=== PATIENT | female | born 1940 | race Caucasian/White ===

== ENCOUNTER → 2018-12-20 09:19 | Outpatient (CLI) | payer MEDICARE, BC, SELFPAY ==
--- NOTE | 2018-12-20 14:33 | DI.MRI.S_ITS ---
PROCEDURE: MR KNEE LT WO CON INDICATIONS: PAIN IN LEFT KNEE TECHNIQUE: Noncontrast sagittal PD fast spin echo and T2 fast spin echo with fat saturation, sagittal 3-D FLASH with fat saturation; coronal T1 spin echo and PD fast spin echo with fat saturation, and axial PD fast spin echo with fat saturation through the knee. COMPARISON: None. FINDINGS: Image quality: Excellent. Menisci: The body of the medial meniscus is truncated, likely secondary to chronic tear. There is degenerative tear of the anterior and posterior horns of the medial meniscus. There is horizontal tear involving the body of the lateral meniscus. The meniscal root ligaments appear intact. Cruciate ligaments: The anterior cruciate ligament appears thickened and demonstrates heterogeneous signal, probably secondary to chronic partial tear and associated scarring. The posterior cruciate ligament appears intact. Medial structures: The medial collateral ligament appears intact. The posterior oblique ligament, semimembranosus tendon insertions, oblique popliteal ligament, and meniscocapsular junction appear intact. Visualized portions of the pes anserinus tendons appear normal. No abnormal bursal fluid. Lateral structures: The lateral collateral ligament, long and short heads of the biceps femoris tendon appear intact. The popliteus tendon appears normal; the popliteofibular ligament appears intact. The posterosuperior and anteroinferior popliteomeniscal fascicles appear intact. The arcuate and fabellofibular ligaments appear intact, on either side of the lateral inferior geniculate artery. Iliotibial band appears normal. Anterior structures: The quadriceps and patellar tendons appear intact. Patellar alignment is normal. No femoral trochlear dysplasia or ventral trochlear prominence. No edema in the infrapatellar fat pad. Bones and cartilage: No bone marrow contusions or fractures. Severe cartilage loss involving the medial femorotibial compartment and patellofemoral compartment. There is a 9 mm cartilage fissure in the weightbearing portion of the lateral femoral condyle. There is marrow edema in the weightbearing portion of the medial tibial plateau. A subchondral cyst is noted in the inferior aspect of patella. Joint space: There is moderate knee joint effusion. No Nugent's cyst. Normal appearing synovial plicae are incidentally noted. IMPRESSION: 1. Extensive tear degenerative tear of the medial meniscus. 2. Horizontal tear involving the body of the lateral meniscus. 3. The anterior cruciate ligament appears thickened with heterogeneous signal likely related to old injury/scarring. 3. Tricompartmental cartilage loss and degeneration most pronounced in the medial femorotibial compartment and the patellar femoral compartment. 4. Moderate knee joint effusion. Dictated by: Esha Cai M.D. on 12/20/2018 at 9:58 Approved by: Esah Cai M.D. on 12/20/2018 at 17:59
== END ==
PROVIDERS: PCP Family Medicine; Visit Provider Orthopaedic Surgery
DX: M25.562 Pain in left knee (principal); M23.212 Derangement of anterior horn of medial meniscus due to old tear or injury, left knee; M23.222 Derangement of posterior horn of medial meniscus due to old tear or injury, left knee; M23.201 Derangement of unspecified lateral meniscus due to old tear or injury, left knee; M25.462 Effusion, left knee
CPT/HCPCS: 73721

== ENCOUNTER 2019-01-21 08:25 | Day surgery (SDC) | payer MEDICARE, BC, SELFPAY ==
[2019-01-07 10:52] VITALS: BMI 28.3
[2019-01-21] VITALS (12 sets, daily range): BP systolic 117–158; BP diastolic 60–84; PULSE 72–84; RESP 12–18; TEMP 36.3–37.2; O2SAT 95–99; BMI 28.3
--- NOTE | 2019-01-21 | DI.RAD.S_ITS ---
PROCEDURE: XR KNEE LT 1TO2V INDICATIONS: LEFT TOTAL KNEE TECHNIQUE: 2 view(s) of the knee acquired. COMPARISON: [facility], , KNEE 1-2 VIEWS RIGHT, 11/08/2017, 10:55. FINDINGS: Bones: Patient is status post knee joint arthroplasty. Hardware components are in expected positions. Visualized bony structures are intact. Soft tissues: Overlying postoperative changes are noted. IMPRESSION: Expected postoperative appearance Dictated by: Heath Pereira M.D. on 01/21/2019 at 16:02 Approved by: Heath Pereira M.D. on 01/21/2019 at 16:03
[2019-01-21] MEDS: VANCOMYCIN 1,000 MG/200 ML FROZ.PIGGY 200 MG IV (09:59)
[2019-01-21] MEDS: ACETAMINOPHEN 325 MG TABLET 975 MG PO ×3 (09:59→20:06)
[2019-01-21] MEDS: PREGABALIN 75 MG CAPSULE PO (09:59)
[2019-01-21] MEDS: LACTATED RINGERS 1,000 ML 42 ML IV ×2 (09:59→12:59)
--- NOTE | 2019-01-21 11:42 | PM.PREOP ---
Pre-operative Note Interval Note History & Physical reviewed/Exam performed by Physician: Yes Changes to H&P: No
[2019-01-21] MEDS: CEFAZOLIN 2 GM/100 ML FROZ.PIGGY IV ×2 (11:47→20:14)
--- NOTE | 2019-01-21 11:47 | P.OP_ITS ---
Operative Date/Time/Diagnoses Date of procedure: 01/21/19 Time of procedure: 11:56 Pre-op diagnosis: Left knee osteoarthritis Post-op diagnosis: same Procedure & Clinicians Procedure: Left total knee arthroplasty Same procedure as scheduled: Yes Indications: The patient has had progressively worsening left knee pain with radiographic changes consistent with arthritis. Non-operative management has failed and the patient has requested total knee replacement. The risks, benefits and alternatives to surgery were discussed with the patient prior to proceeding. Risks discussed included, but were not limited to, failure to relieve pain, stiffness, infection, nerve damage, deep venous thrombosis, pulmonary embolism, stroke, coma, heart attack, permanent paralysis and , as well as the potential need for eventual revision of the prosthetic. Surgeon: Yvonne Mckeon Clinical Exercise Specialist: Nichelle Alfaro Anesthesia Type: Spinal Operative Notes Findings: Severe left knee osteoarthritis, good stability Closure Type: primary Specimen(s): none sent Prosthetic devices, grafts, tissues, transplants, or devices: Mckeon and Nephrachael Brown BCS2 4 FEMUR, 3 TIBIA, 35 X 7.5 PATELLA, +9 POLY, Applied: drain(s) Estimated Blood Loss (mL): 250 Blood products transfused: none Tourniquet time (min): 63 Procedure in detail: The patient was seen in the pre-operative area, where the patient identified the left knee as the operative site and this was marked with my initials. The patient received pre-operative antibiotics, and was taken to the operating room and placed on the operative table in the supine position. After satisfactory anesthesia, a electrotyper helper out was performed. The left leg was encircled with a tourniquet about the proximal thigh, and the leg was prepared from the toes to the tourniquet with ChloroPrep in the usual fashion and draped through sterile drapes. The leg was elevated and exsanguinated with Eschmark bandage and the tourniquet inflated to [250] mmHg pressure. The knee was approached through an approximately 18 cm incision centered over the patella and carried into the knee through a medial parapatellar arthrotomy. A portion of the medial and lateral meniscus was resected. Soft tissue was carefully mobilized around the patella the patella was measured with a caliper. Bone was resected from the patella and the patellar height was reconstituted with up an appropriate sized patellar component. A cover was then placed on the patella. A small amount of additional medial and lateral meniscus was resected. The visionare guide fit well to the distal femur. It looked like an appropriate distal femoral cut and the cut was made without difficulty. The rotation was assessed and the appropriate size femoral guide was placed on the distal femur and finishing cuts were made. There was no evidence of notching. The anterior, posterior and chamfer cuts were then made. The posterior osteophytes and soft tissues were then removed. The posterior capsule was injected with part of a mixture of 60 ml 0.25% Marcaine mixed with 20 ml Exparel for post operative pain control. The remainder of this mixture was injected into the capsule and subc utaneous tissues during cement curing. The tibia was prepared and the visionaire guide fit well to the distal tibia. The rotation was assessed. The patient was placed in extension residual medial and lateral meniscus as well as any residual bone was carefully resected. [No] additional tibia was resected. Hemostasis was achieved especially posteriorly. Additional local was injected into the posterior capsule. The extension gap was assessed and additional releases for gap balancing were performed as necessary. The femoral component was trial was placed and the notch was finished. Trial tibial and femoral components were then placed and the knee placed through a range of motion. Range of motion was [0-130], with good stability throughout the range. The trials were then removed, and the tibia was finished. The bone was prepared with pulsatile lavage, and dried with a sponge. Cement was applied and the final prosthetics placed. Excess cement was removed during and after cement curing. A brief Betadine soak was performed. After confirming there was no extruded cement posteriorly, the final tibial insert was placed. The knee was copiously irrigated and the tourniquet deflated. Hemostasis was obtained with the [Bovie]. A drain was placed and brought out superolaterally. The capsule was closed with interrupted Vicryl suture. The subcutaneous layer was closed with barbed sutures, and the skin with a running 3-0 V-Lock suture and Surgical glue. An Aquacel Ag dressing was applied and the patient was taken to recovery having tolerated the procedure well. Complications: none Condition: stable Disposition: Acute Care Plan for aftercare: The patient will be maintained on a standard total knee replacement protocol with weight bearing as tolerated. The patient will receive aspirin and sequential compression devices for DVT prophylaxis. The patient will be discharged home when safe for the home environment.
--- NOTE | 2019-01-21 12:28 | SUR.OPER ---
Supine on padded OR bed, head on pillow, arms secured on padded arm boards at <90 degrees abduction, legs uncrossed, safety belt at thigh, tape over blanket over lower legs.
[2019-01-21] MEDS: BUPIVACAINE 0.25% W/ EPI 30 ML VIAL 60 ML INJ (12:33)
[2019-01-21] MEDS: POVIDONE-IODINE 15 ML, SODIUM CHLORIDE 0.9% 250 ML TOP (12:35)
[2019-01-21] MEDS: LACTATED RINGERS 1,000 ML 125 ML IV (14:46)
--- NOTE | 2019-01-21 14:47 | PC.NURSE ---
Pt arrived on floor at 1425. Denies pain at this time.Aquacel dressing with leonardo wrap CDI. H/V drain present and clamped.Order to unclamp at 1600. Pt alert and oriented x3. This is her second knee surgery and one past hip surgery. O2 sats = 93% pn RA. SCDs placed.
--- NOTE | 2019-01-21 17:10 | PT.IIE ---
Current Diagnoses Unilateral primary osteoarthritis, left knee (01/21/19) Surgery Performed Operation Date: 01/21/19 10:45 Actual Procedures p Total Knee Arthroplasty(Left) - Yvonne Mckeon MD Surgical History (Last Updated 01/07/19 @ 11:22 by Kiersten Khan RN) History of arthroplasty of right knee (Acute 11/08/17) History of arthroscopy of both knees (Acute) History of total left hip arthroplasty (Acute ~01/2012) Hx of appendectomy (Acute) Hx of craniotomy (Acute 04/16/04) Hx of tonsillectomy (Acute) S/P trigger finger release (Acute) Medical History (Last Updated 01/07/19 @ 11:01 by Kiersten Khan RN) Arthritis (Acute) Asthma (Acute) Constipation (Acute) Depression (Acute) Diverticulosis (Acute) Easy bruisability (Acute) GERD (gastroesophageal reflux disease) (Acute) Glaucoma (Acute) HTN (hypertension) (Acute) History of hysterectomy (Acute) Hyperlipidemia (Acute) Impairment of balance (Acute) Mild memory disturbance (Acute) Precancerous lesion (Acute) Physical Therapy Inpatient Evaluation/Re-Eval M1 PT/OT-IP Prior Functional Status Start: 01/21/19 16:42 Freq: NEEDED Status: Active Protocol: Document 01/21/19 16:15 (Rec: 01/21/19 16:47 [id number]) Medical Review Prior Functional Status Medical History Reviewed Yes Diet/Fluid Consistency Regular Communication No deficits noted. Able to make needs known. Mobility and Gait Pt was an independent ambulator at home and community without AD. Activities of Daily Living and IADL's Pt was independent for ADLs and IADLs without AD. Social History Household Members spouse Living Arrangements House Number of Floors (Floors) One Floor Number of Stairs To Enter/Railing? Front door: 3STE with B railings Back door through garage: 3STE with L railing Home Environment Tub/Shower Home Equipment Front Wheel Walker Straight Cane Raised Toilet Seat w/Armrests Grab Bars In Shower Employment Status Retired Additional Social History Comment Pt and her live in a 1 level home with 5 arces area in [facility]. Pt and her are both retired RN. Pt had her R TKA early last year and she used FWW for a month followed by SPC for half year. Pt reports she was very active before because she has an animal farm to take care of . M2 PT-IP Current Condition Start: 01/21/19 16:42 Freq: NEEDED Status: Active Protocol: Document 01/21/19 16:15 HH (Rec: 01/21/19 16:47 [email or web address]) Physical Therapy Current Condition Current Condition Evaluation Date 01/21/19 Treatment Diagnosis L TKA, impaired gait and activity tolerance Onset Date 01/21/19 Weight Bearing Status Weight Bearing Status Weight Bear as Tolerated M3 PT-IP Subjective Start: 01/21/19 16:42 Freq: NEEDED Status: Active Protocol: Document 01/21/19 16:15 HH (Rec: 01/21/19 16:47 HH [email or web address]) Subjective Physical Therapy Visit Type Type Initial Evaluation Visit Start Time 16:15 Visit Stop Time 17:00 Total Visit Minutes 45 Number of METAL BONDER Visits 0 Physical Therapy Visit Comments Patient Comments Pt denies pain and able to move her knee and ankle Patient Goals To return home and participate outpatient PT in [facility] Therapy Pain Assessment Pain Present Pain Present Denied Pain M4 PT-IP Mobility and Gait Start: 01/21/19 16:42 Freq: NEEDED Status: Active Protocol: Document 01/21/19 16:15 HH (Rec: 01/21/19 17:10 [email or web address]) PT-Bed Mobility Assessment Rolling Level of Assist Contact Guard Assistance Supine to Sit Supine to Sit Contact Guard Assistance Head of Bed Elevated Bedrails Scooting Scooting to Edge of Bed Contact Guard Assistance PT-Transfer Assessment Sit to and From Stand Sit to and from Stand Contact Guard Assistance Use of Upper Extremities Equipment Transfer Assistive Device Gait Belt Front Wheeled Walker Orthotic/Prosthetic Devices or Brace: No Transfers Transfer Destination Bed Chair Bedside Commode Transfer Technique Stand Step Pivot Transfer Ability Level of Assist Contact Guard Assistance Use of Upper Extremities Comments Mobility Comments Pt got out of bed with CGA and bedrails. Pt stood up at EOB with CGA and FWW. Pt immediately void unconsciously and required to transfer and sit back at EOB for cleaning purposes. Pt then transferred to [facility] for further toileting with nursing staff assistance. Pt demonstrated safe transfer techniques and stand step pivot with FWW. Gait Assessment Gait Gait Assistance Required: Contact Guard Assist Distance (Feet) 40 Assistive Devices Assistive Device Gait Belt Front Wheeled Walker Orthotic/Prosthetic Devices or Brace: No Gait Deviations General Gait Pattern Antalgic Decreased Stride Length Decreased Feet Clearance Factors Limiting Gait Function Factors Limiting Gait Function Decreased Activity Tolerance Decreased Sensation Decreased Strength Comments Gait Comments Pt amb from EOB to BSC (5 feet away) then amb to hallway for a total 40 feet with FWW CGA. Pt presents L antalgic gait but step through pattern. Pt was very steady and no signs of LOB/ pain. Stair Climbing Assessment Comments Stair Climbing Comments did not attempt due to fatigue . PT-Balance Assessment Sitting Balance and Reactions Static Sitting Balance Ability Normal Dynamic Sitting Balance Ability Normal Standing Balance and Reactions Static Standing Balance Ability Normal Dynamic Standing Balance Ability Good Device Used FWW M5 PT-IP Objective Assessments Start: 01/21/19 16:42 Freq: NEEDED Status: Active Protocol: Document 01/21/19 16:15 HH (Rec: 01/21/19 17:10 [email or web address]) Orientation Orientation/Cognition Level of Alertness Alert Orientation Name Age Birthday Month Date Year Day of Week Place Situation Language Function Ability No Deficits Noted Safety Awareness Understands Safety Issues Memory Description No Deficits Noted Gross Range of Motion Upper Extremity ROM Assessment Within Functional Limits Lower Extremity ROM Assessment Left Impaired Impairments L knee AROM 3 degrees to 120 degrees Strength Upper Extremity Strength Assessment Within Functional Limits Lower Extremity Strength Assessment Left Impaired Coordination Assessment Gross Coordination Gross Coordination WNL Sensation Assessment Sensation Gross Sensation Left LE Impaired Light Touch Impaired Proprioception (Position) Impaired Comments Sensation Comments decreased sensitivity to LT at L worthy Muscle Tone Muscle Tone WNL Yes M6 PT-IP Treatment Start: 01/21/19 16:42 Freq: NEEDED Status: Active Protocol: Document 01/21/19 16:15 HH (Rec: 01/21/19 17:10 [email or web address]) Physical Therapy Treatment Exercises Exercises Ankle Pumps Gluteal Sets Quad Sets Heel Slides Straight Leg Raises Education Education Provided Precautions Weight Bearing Status Post-Op Packet Safety M7 PT-IP Assessment and Plan Start: 01/21/19 16:42 Freq: NEEDED Status: Active Protocol: Document 01/21/19 16:48 HH (Rec: 01/21/19 17:04 [email or web address]) PT Summary Assessment and Plan Potential Rehabilitation Potential Excellent Status of Condition at Evaluation Stable Summary Impairments Pain ROM Strength Bed Mobility Transfers Gait Activity Tolerance Assessment Summary Pt is a very pleasant 78 yo female POD #1 L TKA. Upon assessment, pt was able to perform bed mobility, transfer activities and gait training with CGA and FWW. Pt was very steady and did not c/o discomfort or pain. Pt is also very educated with post op precautions/ safety awareness due to her medical background and prior TKA. Pt is expected to be d/c home with assistance and outpatient PT once she is able to reach rehab goals and medically stable. Goals Bed Mobility Goal Independent Transfer Goal Independent Front Wheeled Walker Gait Goal Independent Front Wheel Walker Gait Distance 40 Other Goals 3 DENILSON with railings. Days to Meet Goals 3 Frequency of Treatment Frequency Of Treatment Twice a Day Treatment Plan Physical Therapy Treatment Plan Bed Mobility Training Transfer Training Gait Training Therapeutic Exercise Post Op Education Discharge Planning Hot or Cold Pack Other Recommendations and Next Treatment gait training as gopal Focus stair climbing >3 steps with railings Recommendations To Nursing Amount of Assist Needed 1 Person Assist Discharge Recommendations PT Discharge Recommendations Home with Assistance Outpatient PT
[2019-01-21] MEDS: diphenhydrAMINE 25 MG TABLET 50 MG PO (18:51)
[2019-01-21] MEDS: ASPIRIN EC 81 MG TABLET PO (20:06)
[2019-01-21] MEDS: DOCUSATE 250 MG CAPSULE 500 MG PO (20:07)
[2019-01-21] MEDS: CYCLOBENZAPRINE 10 MG TABLET PO (20:07)
[2019-01-21] MEDS: LOVASTATIN 20 MG TABLET 80 MG PO (20:07)
[2019-01-22] MEDS: OXYCODONE IR 5 MG TABLET PO ×3 (00:25→08:54)
[2019-01-22] MEDS: diphenhydrAMINE 25 MG TABLET 50 MG PO ×2 (00:26→06:22)
[2019-01-22] MEDS: LACTATED RINGERS 1,000 ML 125 ML IV (01:20)
[2019-01-22] MEDS: CEFAZOLIN 2 GM/100 ML FROZ.PIGGY IV (04:22)
[2019-01-22 04:48] VITALS: BP 153/79; PULSE 71; RESP 16; TEMP 36.4; O2SAT 96
[2019-01-22 05:53] LABS: Hematocrit 37.1 % (36-46); Hemoglobin 12.8 g/dL (12.0-16.0)
[2019-01-22] MEDS: PANTOPRAZOLE 40 MG TABLET PO (06:01)
--- NOTE | 2019-01-22 07:32 | P.DS_ITS ---
History of Present Illness Date Patient Seen: 01/22/19 Time Patient Seen: 07:30 Chief complaint: left knee [id number] Narrative: Patient's pain this morning is 8/10. She denies nausea and/or vomi ting. No fever or chills. She was up ambulating in room yesterday. 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 Patient does feel she is ready to go home this morning. She is having some itching and would like to use a different antihistamine then Benadryl. Otherwise without complaints. Discharge Providers Date of admission: 01/21/19 08:25 Discharge Date: 01/22/19 Primary care physician: Kartik Dyson MD Consults: 01/21/19 06:00 Consult to Anesthesiology Routine Comment: Consulting Provider: Anesthesiologist Reason for consultation: Regional block for post operative pain control 01/21/19 14:26 Consult to Discharge Planning Routine Comment: Consult to Physical Therapy Evaluate & Treat Comment: Physician Instructions: postop TKA protocol Consult to Respiratory Therapy Evaluate & Treat Comment: Physician Instructions: Evaluate and treat Discharge provider: Terence Salas PA-C Summary Discharge Diagnosis: Status post left total knee arthroplasty Hospital Course: Procedure: Left total knee arthroplasty Same procedure as scheduled: Yes Indications: The patient has had progressively worsening left knee pain with radiographic changes consistent with arthritis. Non-operative management has failed and the patient has requested total knee replacement. The risks, benefits and alternatives to surgery were discussed with the patient prior to proceeding. Risks discussed included, but were not limited to, failure to relieve pain, stiffness, infection, nerve damage, deep venous thrombosis, pulmonary embolism, stroke, coma, heart attack, permanent paralysis and , as well as the potential need for eventual revision of the prosthetic. Surgeon: Yvonne Mckeon Modeling Agent: Nichelle Alfaro Anesthesia Type: Spinal Operative Notes Findings: Severe left knee osteoarthritis, good stability Closure Type: primary Specimen(s): none sent Prosthetic devices, grafts, tissues, transplants, or devices: Mckeon and Nephew Journey BCS2 4 FEMUR, 3 TIBIA, 35 X 7.5 PATELLA, +9 POLY, Applied: drain(s) Estimated Blood Loss (mL): 250 Blood products transfused: none Tourniquet time (min): 63 Status at Discharge Cognitive/behavioral status at discharge: oriented and at baseline, oriented Functional status at discharge: uses cane/walker Overall status at discharge: patient is progressing back to baseline Time Spent with Patient Less than 30 minutes Exam Vital Signs (past 8 hours): - 01/21/19 23:56 01/22/19 04:48 Temperature 97.8 F 97.5 F L Pulse Rate 72 71 Respiratory Rate 17 16 Blood Pressure 117/61 153/79 H Pulse Oximetry 95 96 Oxygen Delivery Method Room Air Narrative Exam Narrative: Left knee dressing is clean, dry and intact. Left leg is warm and dry. Neurovascular status is otherwise intact distal left lower extremity. Objective Labs Result Diagrams: 01/22/19 05:20 Labs: Laboratory Results - last 24 hr 01/22/19 05:20 Hgb 12.8 Hct 37.1 Discharge Plan Discharge Plan Patient Disposition: Home Discharge comment: DC home today after PT Discharge Med Rec/Prescriptions Prescriptions: New hydroxyzine pamoate 25 mg Capsule 25 mg PO Q4HR PRN (Reason: Itching) Qty: 30 RF: 0 Continued cyclobenzaprine 10 MG tablet 10 mg PO BEDTIME Qty: 0 RF: 0 lovastatin 40 MG tablet 80 mg PO BEDTIME Qty: 0 RF: 0 losartan 50 MG tablet 50 mg PO QDAY Qty: 0 RF: 0 fluoxetine 20 MG capsule 20 mg PO QDAY Qty: 0 RF: 0 omeprazole 40 MG capsule,delayed release(DR/EC) 40 mg PO QPM Qty: 0 RF: 0 docusate sodium 250 MG capsule 500 mg PO BID Qty: 0 RF: 0 sennosides [Senokot] 8.6 MG tablet 8.6 mg PO QDAY Qty: 0 RF: 0 meclizine 25 MG tablet 25 mg PO QDAY Qty: 0 RF: 0 fluticasone propionate 16 GM spray,suspension 2 spray Intranasal BEDTIME PRN (Reason: Allergies) Qty: 0 RF: 0 albuterol sulfate [Proventil HFA] 90 MCG/PUFF HFA aerosol inhaler 2 puff INH Q4HP PRN (Reason: sob) Qty: 0 RF: 0 Discontinued hydrocodone-acetaminophen 5 MG/325 MG tablet 2 tab PO BID Qty: 0 RF: 0 acetaminophen 325 MG tablet 2 tab PO Q4HP PRN (Reason: pain) RF: 0 Follow up/Referrals: Kartik Dyson MD [Primary Care Provider] - Provider Discharge Instructions Diet: Diet as Tolerated Activity: Weightbearing as tolerated Cold/Heat Therapy: Apply ice to the affected knee as needed Other treatments: Tylenol 1000 mg t.i.d., aspirin 81 mg b.i.d. Vistaril as needed muscle spasm, nausea, itching, oxycodone as needed pain Skin/Wound/Dressing Care Report to your healthcare provider any signs of infection, such as:: chills, fever, increased pain, unusual drainage and unusual redness Dressing: Keep clean and dry, may remove Vikram wrap within 24-48 hours Other wound treatment: Start physical therapy within 7-10 days Discharge Data Primary Care Provider: Kartik Dyson Attending Provider: Yvonne Mckeon Admit Date/Time: 01/21/19 08:25 Quality VTE Deep Vein Thrombosis/Pulmonary Embolism Present on Admission: No
[2019-01-22 07:35] VITALS: BP 167/81; PULSE 72; RESP 16; TEMP 36.3; O2SAT 97
[2019-01-22] MEDS: MECLIZINE HCL 12.5 MG TABLET 25 MG PO (07:49)
[2019-01-22] MEDS: ACETAMINOPHEN 325 MG TABLET 975 MG PO (07:50)
[2019-01-22] MEDS: ASPIRIN EC 81 MG TABLET PO (07:51)
[2019-01-22] MEDS: LOSARTAN 50 MG TABLET PO (07:52)
[2019-01-22] MEDS: SENNOSIDES 8.6 MG TABLET PO (07:52)
[2019-01-22] MEDS: DOCUSATE 250 MG CAPSULE 500 MG PO (07:53)
--- NOTE | 2019-01-22 08:41 | PT.IPTN ---
Current Diagnoses Unilateral primary osteoarthritis, left knee (01/21/19) Surgery Performed Operation Date: 01/21/19 10:45 Actual Procedures p Total Knee Arthroplasty(Left) - Yvonne Mckeon MD Physical Therapy Treatment Note M2 PT-IP Current Condition Start: 01/21/19 16:42 Freq: NEEDED Status: Active Protocol: Document 01/22/19 08:00 BS (Rec: 01/22/19 08:35 BS [email or web address]) Physical Therapy Current Condition Current Condition Evaluation Date 01/21/19 Treatment Diagnosis L TKA, impaired gait and activity tolerance Onset Date 01/21/19 Weight Bearing Status Weight Bearing Status Weight Bear as Tolerated M3 PT-IP Subjective Start: 01/21/19 16:42 Freq: NEEDED Status: Active Protocol: Document 01/22/19 08:00 BS (Rec: 01/22/19 08:35 BS [email or web address]) Subjective Physical Therapy Visit Type Type Treatment Note Visit Start Time 07:30 Visit Stop Time 08:00 Total Visit Minutes 30 Physical Therapy Visit Comments Patient Comments Pt reports increased pain today. 8-9/10 but states that she is ready to discharge home with today. Therapy Pain Assessment Pain When Pain Assessed At Rest Pain Present Pain Present Pain Reported Location Left Knee Intensity 9 Scale Used Numeric (1 - 10) Description Aching With Movement Pain Management Techniques Elevation Timing of Activity with Medications M4 PT-IP Mobility and Gait Start: 01/21/19 16:42 Freq: NEEDED Status: Active Protocol: Document 01/22/19 08:00 BS (Rec: 01/22/19 08:35 BS [email or web address]) PT-Bed Mobility Assessment Rolling Level of Assist Standby Assistance Supine to Sit Supine to Sit Standby Assistance Sit to Supine Sit to Supine Standby Assistance Scooting Scooting to Edge of Bed Standby Assistance Scooting Up and Down in Bed Standby Assistance PT-Transfer Assessment Sit to and From Stand Sit to and from Stand Standby Assistance Equipment Transfer Assistive Device Front Wheeled Walker Orthotic/Prosthetic Devices or Brace: No Transfers Transfer Destination Bed Chair Transfer Technique Stand Step Pivot Transfer Ability Level of Assist Standby Assistance Comments Mobility Comments Pt leeroy's SBA and safety awareness with transfers supine->standing EOB with use of B UE on bedside to assist with sit-stand. Pt leeroy's good static and dynamic postural stability in standing. Gait Assessment Gait Gait Assistance Required: Standby Assistance Distance (Feet) 200 Able to Maintain Weight Bearing Status Yes During Gait Assistive Devices Assistive Device Gait Belt Front Wheeled Walker Orthotic/Prosthetic Devices or Brace: No Gait Deviations General Gait Pattern Antalgic Decreased Stride Length Decreased Feet Clearance Factors Limiting Gait Function Factors Limiting Gait Function Decreased Strength Limited Range of Motion Pain Comments Gait Comments Antalgic gait pattern with decreased step length and decreased LLE stance stance time. Stair Climbing Assessment Evaluation Level of Assist On Stairs Standby Assistance Devices Stair Climbing Assistive Devices Right Railing Technique/Endurance Stair Climbing Direction Ascend and Descend Stair Climbing Technique Step to Step Number of Steps Climbed 3 Query Text: Stair Climbing Set # Repetitions (reps) 2 Comments Stair Climbing Comments 2 cycles of stair training. 1 cycle with x2 handrails and SBA and 1 cycle with x1 R handrail and SBA, step together pattern. Pt exhibited good stability with stairs and education provided regarding stair climbing/ descent strategies at home for increased safety. PT-Balance Assessment Sitting Balance and Reactions Static Sitting Balance Ability Normal Standing Balance and Reactions Static Standing Balance Ability Normal Dynamic Standing Balance Ability Normal M5 PT-IP Objective Assessments Start: 01/21/19 16:42 Freq: NEEDED Status: Active Protocol: Document 01/21/19 16:15 (Rec: 01/21/19 17:10 [email or web address]) Orientation Orientation/Cognition Level of Alertness Alert Orientation Name Age Birthday Month Date Year Day of Week Place Situation Language Function Ability No Deficits Noted Safety Awareness Understands Safety Issues Memory Description No Deficits Noted Gross Range of Motion Upper Extremity ROM Assessment Within Functional Limits Lower Extremity ROM Assessment Left Impaired Impairments L knee AROM 3 degrees to 120 degrees Strength Upper Extremity Strength Assessment Within Functional Limits Lower Extremity Strength Assessment Left Impaired Coordination Assessment Gross Coordination Gross Coordination WNL Sensation Assessment Sensation Gross Sensation Left LE Impaired Light Touch Impaired Proprioception (Position) Impaired Comments Sensation Comments decreased sensitivity to LT at L worthy Muscle Tone Muscle Tone WNL Yes M6 PT-IP Treatment Start: 01/21/19 16:42 Freq: NEEDED Status: Active Protocol: Document 01/22/19 08:00 BS (Rec: 01/22/19 08:35 BS [email or web address]) Physical Therapy Treatment Education Education Provided Precautions Weight Bearing Status Safety Equipment Issued Equipment Type and Company Pt has her own FWW. M7 PT-IP Assessment and Plan Start: 01/21/19 16:42 Freq: NEEDED Status: Active Protocol: Document 01/22/19 08:00 BS (Rec: 01/22/19 08:35 BS [email or web address]) PT Summary Assessment and Plan Potential Rehabilitation Potential Good Status of Condition at Evaluation Stable Summary Impairments Pain ROM Strength Bed Mobility Gait Activity Tolerance Assessment Summary Pt tolerated PT session well today but with increased level of pain. Pt demo'd increased activity tolerance with ambulation x200' and use of FWW, SBA for safety. Pt also completed stair training with R handrail and demo'd good stability/balance. Goals Bed Mobility Goal Independent Transfer Goal Independent Front Wheeled Walker Gait Goal Independent Front Wheel Walker Gait Distance 200 Other Goals 3 DENILSON with R handrail Recommendations To Nursing Amount of Assist Needed Standby Assistance Discharge Recommendations PT Discharge Recommendations Home with Assistance Outpatient PT
--- NOTE | 2019-01-22 09:20 | PC.NURSE ---
Pt hemovac dcd w/o diff, Pt gopal well, applied sterile 4x4 to site. Pt sched to dc to home this AM. Vikram wrap removed. Ice to L knee,
--- NOTE | 2019-01-22 11:59 | CM.DANOTE ---
Discharge Planning/Care Management DCP: assessment: Case received and discussed in Team Rounds. Ortho RASHAWN Cadena noted that pt would likely d/c home today once cleared by PT. Pt is a 78 year old female who admitted to care of surgeon: Sr. Mckeon yesterday for a planned L knee surgery: Admission status: SDC/confirmed by UR MOR Tucker. Went to room this morning about 1100 to meet with pt. Room empty and care team members note that she had aleady been cleared by PT and had left for home as per her pre-op plan Advanced directive, confirm from FAMILY Start: 01/21/19 14:45 Freq: Q24H Status: Discharge Protocol: Document 01/21/19 14:45 AMM (Rec: 01/21/19 14:45 AMM [email or web address]) Advance Directive, confirm on record Time 14:45 Person contacted spouse Copy received No CM Discharge Assessment Start: 01/22/19 11:58 Freq: Status: Active Protocol: Document 01/22/19 11:58 ITV (Rec: 01/22/19 11:58 ITV [email or web address]) Discharge Planning Assessment Advance Directives? Yes Advance Directives on File No History Provided By Patient Medical Record Prior Living Arrangements House Household Members spouse Review Status In Process Next Review Type Continued Stay Review Pre-Anesthesia Assessment Start: 01/07/19 10:52 Freq: Status: Complete Protocol: Document 01/07/19 10:52 CAB (Rec: 01/07/19 11:30 CAB [id number]) Pre-Anesthesia Assessment Patient Also Known As Vásquez (AKA) Patient Information Reviewed Via Phone Assessment Assessment Completed With Patient Diagnostic Results BMP/CMP CBC EKG Primary Care Provider Kartik Dyson Medical Clearance Received Yes Seen Specialist in Last 12 Months Yes Specialist Seen Orthopedist Comment PCP clearance scanned to record Primary Language Malawian Control Specialist Required No Height 162.56 cm Weight 74.843 kg Body Mass Index (BMI) 28.3 Hearing Ability Normal Visual Assist Magnifying Glass Dentition Type Teeth, Natural Present Teeth, Missing Barriers to Learning Memory Other Aids No Hx Anesthesia Reactions No Hx Family Anesthesia Reaction Unknown, pt adopted Hx Malignant Hyperthermia No Hx Blood Transfusions Yes: S/p craniotomy 2004 Hx Blood Transfusion Reaction No Anesthesia Review Requested No Facility Technician No alcohol intake former Alcohol Intake Frequency Other: Quit 25 years ago Smoking Status Never smoker Substance Use Type does not use Pain Present Pain Reported Musculoskeletal Symptoms Abnormal Gait Back Pain Difficulty Walking Joint Pain Joint Stiffness Muscle Weakness Neck Pain Numbness History of Falling (Recent or History of Yes ) Patient is completely paralyzed or No completely immobile Comment Impaired balance Is patient on oxygen? No Does patient have LEYVA/SOB Yes: Occasional with cleaning horse stalls Hx Sleep Apnea No Currently Taking a Beta Vikash No Can You Climb a Flight of Stairs Without Yes: Occasional with cleaning SOB horse stalls Hx Chest Pain No Hx SOB Yes: Occasional with cleaning horse stalls Hx Syncope or Dizziness No Anti-Coagulant Therapy No Has a Research Director No Cardiac Testing No Hx Pacemaker/ICD No Pacemaker Rep Required? No Cardiac Clearance Received Not Applicable Diet Type At Home Regular dysphagia No Urinary Catheter Present No Hx Urinary Self Catheterization No Diabetes No Patient No Lactating No Hx Drug Resistant Organism No Presence of External or Internal Medical No Devices Have you traveled outside the [facility] in the last 30 days? Marital Status Lives With spouse Prior Living Arrangements House Number of Floors (Floors) One Floor Number of Stairs To Enter/Railing? 3 stairs, railing present Support System Child/Children Spouse Does the Patient Have Assistance After Yes Surgery Patient Discharge Plan Description Return Home Comment Pt not advised on length of stay by surgeon. Pt & retired RNs Feels Safe in Current Environment Yes Been Physically Hurt or Threatened By a No Person in Current Environment Do you have thoughts of harming yourself None or others? Are you currently considering suicide? No Do you have a plan to hurt yourself or No Plan others? Do You Have Any Spiritual Beliefs That No May Affect Your HC Choices? Do You Have Any Cultural Practices That No May Affect Your HC Choices? Spiritual Referral None Comment Sabianist Who Can We Speak to About Patient's Care Family, friends Identifying Code for Release of Patient Declines to issue Information Health Care Proxy/Next of Kin Edvin () Health Care Proxy Emergency Contact Name Edvin () Emergency Contact Advance Directives? Yes Advance Directives on File No Requested Patient Bring Advanced Yes Directives DOS Power of Fruit Room Hand Yes Power of Fruit Room Hand Name Edvin () Power of Fruit Room Hand PAC Instructions Do not shave/clip surgical site Durable medical equipment Medications to take/avoid Nasal antibiotic NPO Pre-surgical wash Sturdy shoes/comfortable clothes Do not bring valuables and remove jewelry
== END 2019-01-22 10:22 | disposition home or self-care (01) ==
LOC: AC 01-22 07:29 → OR 01-22 10:33
PROVIDERS: PCP Family Medicine; Visit Provider Orthopaedic Surgery
PROC: 0SRD0JZ Replacement of Left Knee Joint with Synthetic Substitute, Open Approach (ICD-10-PCS; CPT 27447; principal; 2019-01-21 10:45)
DX: M17.12 Unilateral primary osteoarthritis, left knee (principal); J45.909 Unspecified asthma, uncomplicated; I10 Essential (primary) hypertension
CPT/HCPCS: 27447; 36415; 73560; 85014; 85018; 97116; 97161; 97530; C1776; J0690; J1100; J2250; J2274; J2405; J2704; J3010; J3370